=== PATIENT | male | born 1935 | race Caucasian/White ===

== ENCOUNTER → 2017-12-02 | Outpatient (CLI) | payer MEDICARE | LOC: LAB.O 13:02 | PROVIDERS: ATTEND Internal Medicine Interventional Cardiology | DX: I50.20 Unspecified systolic (congestive) heart failure (principal); I48.91 Unspecified atrial fibrillation; R06.02 Shortness of breath ==

== ENCOUNTER → 2018-04-07 | Outpatient (CLI) | payer MEDICARE ==
--- NOTE | 2018-04-07 15:35 | CT ---
EXAM DESCRIPTION: CT THORACIC ANGIOGRAM CT ABDOMEN AND PELVIS WITH CONTRAST CLINICAL HISTORY: Dyspnea, elevated d-dimer, ABNORMAL LFT'S R94.5, abdominal distention COMPARISON: None Available. TECHNIQUE: CT thoracic angiogram was performed with pulmonary embolus protocol. CT of the abdomen and pelvis are performed during IV bolus administration of routine adult dose of nonionic iodinated contrast. No oral contrast. FINDINGS: CT thoracic angiogram No large central pulmonary emboli. The small peripheral branches are difficult to evaluate due to respiratory motion as well as incomplete opacification. No distinct filling defects surrounded by contrast to suggest emboli in the smaller vessels. The central vessels are well opacified. Large renal arteries may indicate pulmonary hypertension. No aortic aneurysm or dissection. Fluid around the aorta suggests small pericardial effusion. The heart is enlarged with extensive coronary calcification. Bilateral pleural effusions are present of moderate size with partial volume loss of the dependent portions of the lungs consistent with passive atelectasis. Lung window images show extensive hazy groundglass edema throughout both lungs and the pulmonary vessels are congested consistent with volume overload or congestive failure. A small mass is seen in the left upper lobe at the level of the left pulmonary hilum (axial image 164, series 5) which measures 1.1 cm. This could be a small primary pulmonary neoplasm and follow-up is recommended as per recommendations below. No mediastinal mass or adenopathy. Gynecomastia is present. No lower cervical or supraclavicular or axillary lymph node enlargement. Old rib fractures on the left appear healed. Coronal, sagittal and oblique MIP images are negative for pulmonary emboli but artifacts are fairly extensive. CT abdomen Large amount of free fluid in the upper abdomen is consistent with ascites. No calcified stones in the gallbladder. Kidney cortex appears somewhat thinned bilaterally suggesting senescent changes are chronic. Minimal disease. Correlate with renal function studies. Cyst in the lateral left kidney appears benign and measures 3.5 cm. Otherwise the liver, spleen, pancreas, gallbladder, adrenal glands, and stomach are unremarkable in appearance. No inflammation around the pancreas. No renal stones or hydronephrosis. No bowel dilatation to suggest obstruction. No free air or free fluid. CT pelvis Appendix appears normal. Large amount of free fluid in the pelvis consistent with ascites. No inflammation around the cecum or terminal ileum or sigmoid colon. Bladder and distal ureters are negative for stones. Normal enhancement of pelvic vessels. No inguinal or lower pelvic adenopathy. Prostate is prominent 4.4 cm in transverse dimension. Bone window images are negative for fracture or lytic lesion. Coronal and sagittal reformatted images confirm the findings. Spleen is prominent on the coronal images. Mild surface irregularity of the liver could indicate cirrhosis or chronic scarring from passive hepatic congestion. Clinical correlation recommended. Splenic length of 13 cm is increased for age. Severe degenerative changes of the lumbar spine. IMPRESSION: Negative for evidence of pulmonary embolic disease. Nodular mass in the left upper lobe measures 1 cm. Follow-up recommended as per recommendations below. Large amount of free fluid in the abdomen consistent with ascites. See above. 2017 Fleischner Society Recommendations for Single Solid Lung Nodule Follow-Up based on size (average of long- and short-axis diameters) 6-8 mm Low-Risk Patient: CT at 6-[address] at 18-24 months 6-8 mm High-Risk Patient: CT at 6-[address] at 18-24 months >8 mm Low-Risk Patient: Consider CT, PET/CT or tissue sampling at 3 months >8 mm High-Risk Patient: Same as for low-risk patient This exam was performed according to our departmental dose-optimization program, which includes automated exposure control, adjustment of the mA and/or kV according to patient size and/or use of iterative reconstruction technique. Total DLP equals 1979.97 mGycm. Electronically signed by: Adria Ray MD 04/07/2018 3:34 PM CDT
== END ==
LOC: CT 09:01
PROVIDERS: ATTEND General Practice
DX: R06.02 Shortness of breath (principal); R91.1 Solitary pulmonary nodule; R94.5 Abnormal results of liver function studies; R18.8 Other ascites

== ENCOUNTER → 2018-08-10 | Outpatient (CLI) | payer MEDICARE ==
--- NOTE | 2018-08-10 13:39 | CT ---
EXAM DESCRIPTION: Chest w/o Contrast CLINICAL HISTORY: 83 years, Male, LUNG NODULE COMPARISON: CTA chest April 07, 2018 TECHNIQUE: Thin-section noncontrast axial CT images are obtained according to our protocol. Reconstructed MPR images are created and reviewed as well. FINDINGS: Lungs: There is vascular congestion with mild pulmonary edema. Minimal patchy infiltrate in the lingula suggests mild pneumonia. Compared to the previous study, vessels are more congested and the pulmonary edema was more prominent at that time. Patchy infiltrate in the lingula appears similar. Previous study showed a nodule in the left upper lobe peripheral to the pulmonary hilum. On the present exam, small nodular density is seen in the left upper lobe which measures 6.5 mm abutting the upper left major fissure (image 45, series 4). Previously the nodule measured 1.1 cm but the location is not identical. At a similar level, minimal linear scar remains 5 mm consistent with resolution of a previous inflammatory nodule at that site (image 53, series 4). The present nodule is therefore considered new and follow-up is recommended as per recommendations below. Tiny nodule in the anterior segment right upper lobe subpleural measures 3.5 mm on image 54, series 4. Pleural effusions are present moderate on the right and small on the left. Pleural effusions are similar to previous study, perhaps slightly decreased on the left. Mediastinum: Lymph nodes are normal in size. Normal vascular contours. Heart size is normal with no pericardial effusion. There is extensive coronary arterial calcification. Chest wall/axilla: No mass or adenopathy. Prominent gynecomastia bilaterally. Advanced degenerative changes in the shoulders. Lower neck/supraclavicular: No mass or adenopathy. Upper abdomen: Large amount of free fluid in the upper abdomen is consistent with ascites which appears increased compared to the previous study. Liver surface is irregular suggesting cirrhosis, possibly cardiac cirrhosis. Otherwise unremarkable upper abdominal viscera partially visualized. Coronal and sagittal reformatted images confirm the findings. IMPRESSION: Large heart with vascular congestion and mild pulmonary edema. Small to moderate pleural effusions. Large amount of upper abdominal ascites. Interval resolution of 1 cm nodule in the left upper lobe since previous study. New nodule in the left upper lobe near the upper major fissure measuring 6.5 mm. Small nodule in the anterior segment right upper lobe in area of infiltrate 3.5 mm. Follow-up as per recommendations below. 2017 Fleischner Society Recommendations for Multiple Solid Lung Nodules Follow-Up base on size (average of long- and short-axis diameters). Use most suspicious nodule for followup. Nodule Size 6-8 mm Low-Risk Patient: CT at 3-[address] at 18-24 months Nodule Size 6-8 mm High-Risk Patient: CT at 3-6 months then at 18-24 months This exam was performed according to our departmental dose-optimization program, which includes automated exposure control, adjustment of the mA and/or kV according to patient size and/or use of iterative reconstruction technique. Total DLP equals 944 mGycm. Electronically signed by: Adria Ray MD 08/10/2018 1:37 PM [employer]
== END ==
LOC: CT 11:13
PROVIDERS: ATTEND General Practice
DX: R91.1 Solitary pulmonary nodule (principal); J81.0 Acute pulmonary edema; J90 Pleural effusion, not elsewhere classified

== ENCOUNTER → 2018-10-23 | Outpatient (CLI) | payer MEDICARE ==
--- NOTE | 2018-10-23 13:17 | OP ---
DATE OF PROCEDURE: 10/23/18 PREOPERATIVE DIAGNOSIS: 1. Ascites, believed to be secondary to alcoholic cirrhosis. POSTOPERATIVE DIAGNOSIS: 1. Ascites, believed to be secondary to alcoholic cirrhosis. PROCEDURE PERFORMED: 1. Sonographically guided therapeutic paracentesis. SURGEON: Reggie Alvarado MD. MANAGER CATEGORY: None. ANESTHESIA: Local infiltration of 1% lidocaine. INDICATION: The patient is an 83-year-old male with ascites that is quite uncomfortable causing shortness of breath and abdominal pain and distention. He has previously undergone paracentesis twice and has been referred to ar by the [facility] nurses for a therapeutic paracentesis. FINDINGS: Approximately 10,750 mL of clear, dark, yanet-colored fluid was obtained. DESCRIPTION OF PROCEDURE: After the patient was placed in the supine position in the Ultrasound Suite, the head of the bed was slightly elevated. Both the right lower quadrant and left lower quadrant were inspected with the ultrasound and an area of fluid was identified. At this point, the skin lateral to the ultrasound probe was prepped with Chlorhexidine and draped. Local infiltration of anesthesia was obtained with 1% lidocaine. A 22-gauge needle was introduced under ultrasound guidance and a small amount of fluid was obtained. At this point, a stab wound was made with an 11 blade and paracentesis catheter was introduced under direct sonographic vision into the cavity of fluid. The fluid was aspirated easily. The catheter was advanced and the needle withdrawn. It was then connected to the three-way stopcock and a total of 60 mL of fluid was obtained. It was then switched to the suction canisters and the remaining fluid was removed without significant difficulty. When this was done, the catheter was removed. Pressure was held for hemostasis and a pressure dressing was applied. The patient tolerated the procedure well and had no discomfort and was without significant symptomatology upon standing. He left the hospital in a wheelchair. Estimated blood loss was nil. The patient tolerated the procedure well. #[id number] MTDD
--- NOTE | 2018-10-24 08:06 | US ---
EXAM DESCRIPTION: Paracentesis CLINICAL HISTORY: 83 years Male, ASCITES AND ALCOHOLIC CIRRHOSIS COMPARISON: None. FINDINGS: Limited abdominal ultrasound was performed for guidance purposes in conjunction with a planned paracentesis. Adequate fluid for safe paracentesis is noted in the right lower quadrant, the skin overlying this area was marked for paracentesis. IMPRESSION: Ascites, most apparent in the right lower quadrant, sufficient for safe paracentesis. Electronically signed by: Martínez Anton MD 10/24/2018 8:03 AM CDT
== END ==
LOC: US 10:46
PROVIDERS: ATTEND Surgery
DX: K70.31 Alcoholic cirrhosis of liver with ascites (principal); F10.10 Alcohol abuse, uncomplicated